=== PATIENT | female | born 1965 | race Caucasian/White ===

== ENCOUNTER 2016-07-20 00:16 | Emergency (ER) | payer OTHER ==
[2016-07-20 00:32] VITALS: RESP 20
--- NOTE | 2016-07-20 01:06 | ED ---
Upper Extremity HPI <Rusty Peter - Last Filed: 07/20/16 02:55> - General Source: patient, family Mode of arrival: ambulatory Limitations: no limitations <Anuradha Moore - Last Filed: 07/20/16 12:26> - General Chief Complaint: Extremity Injury, Upper Stated Complaint: R Wrist Injury Time Seen by Provider: 07/20/16 00:37 - History of Present Illness Initial Comments: is a 50-year-old female with chief complaint of right hand injury after she fell. Patient reports that she's had a few alcoholic drinks and was dancing. Patient reports that she tripped when she was dancing and landed on her hand hitting his outstretched. Patient reports is a visual deformity of the wrist. She denies any peripheral paresthesias. She states that her hand has some mild pain with movement. Patient denies any elbow or shoulder pain. Patient reports that she is right-handed. She does not have an orthopedic physician at this time. (Anuradha Moore) - Related Data Previous Rx's Medication Instructions Recorded HYDROcodone/APAP 10-325MG [[place] 1 tab PO Q6H PRN #20 tab 07/20/16 10-325] Allergies Allergy/AdvReac Type Severity Reaction Status Date / Time No Known Allergies Allergy Verified 07/20/16 00:29 Review of Systems ROS Other: All systems not noted in ROS Statement are negative. <RomeRusty - Last Filed: 07/20/16 02:55> ROS Other: All systems not noted in ROS Statement are negative. <Anuradha Moore - Last Filed: 07/20/16 12:26> ROS Statement: Those systems with pertinent positive or pertinent negative responses have been documented in the HPI. Past Medical History Past Medical History: Hypertension History of Any Multi-Drug Resistant Organisms: None Reported Past Surgical History: No Surgical Hx Reported Past Psychological History: Anxiety Smoking Status: Former smoker Past Alcohol Use History: None Reported, Occasional Past Drug Use History: None Reported <Anuradha Moore - Last Filed: 07/20/16 12:26> General Exam <RomeRusty - Last Filed: 07/20/16 02:55> Limitations: no limitations General appearance: alert, in no apparent distress Head exam: Present: atraumatic, normocephalic, normal inspection Eye exam: Present: normal appearance, PERRL, EOMI. Absent: scleral icterus, conjunctival injection, periorbital swelling ENT exam: Present: normal exam, mucous membranes moist Neck exam: Present: normal inspection. Absent: tenderness, meningismus, lymphadenopathy Respiratory exam: Present: normal lung sounds bilaterally. Absent: respiratory distress, wheezes, rales, rhonchi, stridor Cardiovascular Exam: Present: regular rate, normal rhythm, normal heart sounds. Absent: systolic murmur, diastolic murmur, rubs, gallop, clicks GI/Abdominal exam: Present: soft, normal bowel sounds. Absent: distended, tenderness, guarding, rebound, rigid Extremities exam: Present: normal inspection, normal capillary refill. Absent: full ROM, tenderness, pedal edema, joint swelling, calf tenderness Right Hand Wrist exam: Present: tenderness (over distal radius and ulna), swelling, deformity (silverfork deformatiy. ). Absent: normal inspection, full ROM Neuro motor exam: Present: thumb adduction intact, fingers 2-5 abduction intact. Absent: wrist extension intact (mild extensio with pain. ) Neurosensory exam: Present: 2-point discrimination, radial nerve intact, ulnar nerve intact, median nerve intact Vascular: Present: normal capillary refill Back exam: Present: normal inspection Neurological exam: Present: alert, oriented X3, CN II-XII intact Psychiatric exam: Present: normal affect, normal mood Skin exam: Present: warm, dry, intact, normal color. Absent: rash <Anuradha Moore - Last Filed: 07/20/16 12:26> - General Exam Comments Initial Comments: is a well-appearing 50-year-old female. She is on appear to be in any acute distress. (Anuradha Moore) Procedures <Rusty Peter - Last Filed: 07/20/16 02:55> - Orthopedic Fracture Reduction Fracture #1 Fracture Reduction Location: radius Analgesia: hematoma block Technique: traction/counter-traction Post Reduction X-rays Demonstrate: anatomical reduction Post-Reduction Neuro Exam: intact Post-Reduction Vascular Exam: intact Splint Applied: Yes Patient Tolerated Procedure: well, no complications - Orthopedic Splinting/Casting Injury #1 Side: right Upper Extremity Injury Location: wrist Upper Extremity Immobilizer: volar splint <Anuradha Moore - Last Filed: 07/20/16 12:26> - Procedures Initial comment: A hematoma block was performed the patient and her sterile conditions and reduction was accomplished with the assistance of the physician assistant counsel. I did review the x-ray and discuss findings with patient family. Patient will be discharged with orthopedic follow-up. There appear to be a good result for the reduction of the distal radius fracture. (Rusty Peter) Medical Decision Making <Rusty Peter - Last Filed: 07/20/16 02:55> - Radiology Data Radiology results: report reviewed <Anuradha Moore - Last Filed: 07/20/16 12:26> - Medical Decision Making PAtient is a 50 year old right handed female with distal radius fracture after dancing and falling back on an outstreched hand. PAtient has obvious silver fork deformity. Patient has comminuted distal radius fracture, and ulnar syloid process fracture. Patient given hematoma block by Dr. Peter, and fracture was manually reduced and placed in an volar splint. PAtient given pain medicaiton script and follow up with ortho. Return parameters discussed. Patient was reelvaluated and is neurovascularly intact post reduction. (Anuradha Moore) - Radiology Data Acute comminuted displaced distal right radial fracture with dorsal angulation and displacement of distal fracture fragment. displaced comminuted ulnar styloid process fracture. soft tissue swelling. No acute fracture in hand. Post reduction xray- Evience of internal post reduction and fiberglass cast application changes with improved position of fracture fragments in distal right radius and ulna. (Anuradha Moore) Disposition <Rusty Peter - Last Filed: 07/20/16 02:55> Time of Disposition: 02:54 <Anuradha Moore - Last Filed: 07/20/16 12:26> Clinical Impression: Closed fracture distal radius and ulna Disposition: HOME SELF-CARE Condition: Good Instructions: Arm Fracture in Adults (ED) Additional Instructions: Instructed to follow-up with orthopedic physician. Take pain medication as directed. Return to the EC if any alarming signs or symptoms occur. Prescriptions: HYDROcodone/APAP 10-325MG [[place] 10-325] 1 tab PO Q6H PRN #20 tab PRN Reason: Pain Referrals: Felipe Fam Jr, DO [Primary Care Provider] - 1-2 days Ladarius Salazar MD [STAFF PHYSICIAN] - 1-2 days
[2016-07-20] MEDS ORDERED: HYDROmorphone 1 MG/ML 1 ML SYRINGE IM STA (01:07)
[2016-07-20] MEDS ORDERED: ONDANSETRON 4 MG ODT STARTER PACK 2 TAB BTL PO STA (03:06)
[2016-07-20 03:13] VITALS: BP 136/78; PULSE 80; TEMP 98.2
--- NOTE | 2016-07-20 03:25 | XR ---
EXAMINATION TYPE: XR hand limited RT DATE OF EXAM: 07/20/2016 12:55 AM CLINICAL HISTORY: Patient fell back on the outstretched right and and wrist TECHNIQUE: Frontal, lateral and oblique images of the right hand are obtained. COMPARISON: Right wrist 07/20/2016 FINDINGS: There is evidence of acute comminuted displaced fracture of distal right radius with dorsal angulatio n and displacement of distal fracture fragment. There is also evidence of displaced acute comminuted fracture of right ulnar styloid process. Soft tissue swelling is noted around right wrist and right hand. Right hand showed no definite acute fracture. Mild degenerative changes are suggested in the right fi rst metacarpophalangeal joint. IMPRESSION: 1. Acute comminuted displaced distal right radial fracture with dorsal angulation and displacement of distal fracture fragment. 2. Displaced comminuted ulnar styloid process fracture. 3. Soft tissue swelling. 4. No acute fracture is noted in the right hand.
--- NOTE | 2016-07-20 03:27 | XR ---
EXAMINATION TYPE: XR wrist complete RT DATE OF EXAM: 07/20/2016 12:55 AM CLINICAL HISTORY: History of fall TECHNIQUE: Frontal, lateral and oblique images of the right wrist are obtained. COMPARISON: Right hand 07/20/2016 FINDINGS: There is acute comminuted displaced fracture of distal right radius with dorsal angulation and displa cement of distal fracture fragments. This does not appear as intra-articular fracture. There is slightly displaced fracture of right ulnar styloid process. Soft tissue swelling is noted around the right hand and right wrist. IMPRESSION: Acute comminuted displaced fracture of distal right radius and displaced fracture of right ulnar styl oid process.
--- NOTE | 2016-07-20 04:29 | XR ---
EXAMINATION TYPE: XR wrist limited RT DATE OF EXAM: 07/20/2016 2:29 AM CLINICAL HISTORY: Post reduction TECHNIQUE: Frontal and lateral radiographs of right wrist were obtained. COMPARISON: 07/20/2016 FINDINGS: There is evidence of post reduction and fiberglass cast application with improved position of fractur e fragments of distal right radius. There is slightly displaced fracture fragment of right ulna stylo id process with improved position since previous study. Soft tissue swelling. IMPRESSION: Evidence of interval post reduction and fiberglass cast application changes with improved position of fracture fragments of distal right radius and ulna.
== END 2016-07-20 03:13 | disposition home or self-care (01) ==
LOC: EC 00:16
DX: S52.591A Other fractures of lower end of right radius, initial encounter for closed fracture (principal); S52.611A Displaced fracture of right ulna styloid process, initial encounter for closed fracture; W01.0XXA Fall on same level from slipping, tripping and stumbling without subsequent striking against object, initial encounter; Y93.41 Activity, dancing; Z87.891 Personal history of nicotine dependence
CPT/HCPCS: 73100; 73110; 73120; 99283; 25605; 96372; J1170

== ENCOUNTER → 2016-07-22 | Outpatient (CLI) | payer OTHER ==
[2016-07-22 15:17] LABS: Potassium 3.7 mmol/L (3.5-5.1)
== END | disposition home or self-care (01) ==
LOC: LAB 14:07
PROVIDERS: ATTEND Orthopaedic Surgery
DX: Z01.818 Encounter for other preprocedural examination (principal)
CPT/HCPCS: 80051

== ENCOUNTER 2016-08-07 06:57 | Observation (INO) | payer OTHER ==
[2016-08-06 10:14] VITALS: BMI 30.1
[~2016-08-07 06:57] MED LIST: DEXAMETHASONE SOD PHOSPHATE 10 MG/ML 1 ML VIAL IV ONE; LACTATED RINGERS 1,000 ML IV SCH; LIDOCAINE 1% 20 ML VIAL (10MG/ML) FOR IV START INTRADERMA PRN; MIDAZOLAM 2 MG/2 ML VIAL IV PRN; ONDANSETRON 4 MG/2 ML VIAL IVP ONE; SCOPOLAMINE 1.5MG/72HR PATCH TRANSDERM ONE; ceFAZolin 2 GM in SODIUM CHLORIDE 0.9% 100 ML IVPB ONE
[2016-08-07] MEDS ORDERED: LIDOCAINE 1% 20 ML VIAL (10MG/ML) FOR IV START INTRADERMA ONE (07:13)
[2016-08-07] MEDS ORDERED: ePHEDrine 50 MG/ML 1 ML AMP ONE (08:39)
[2016-08-07] MEDS ORDERED: SUCCINYLCHOLINE CHLORIDE 100 MG/5 ML SYR IV ONE (08:39)
[2016-08-07] MEDS ORDERED: KETOROLAC 30 MG/ML 1 ML VIAL ONE (08:39)
[2016-08-07] MEDS ORDERED: LIDOCAINE 1% INJ 10MG/ML (20 ML MDV) ONE (08:39)
[2016-08-07] MEDS ORDERED: PROPOFOL 10 MG/ML 20 ML VIAL IV ONE (08:39)
[2016-08-07] MEDS ORDERED: HYDROmorphone (PF) 1 MG/ML ONE (08:39)
[2016-08-07] MEDS ORDERED: MIDAZOLAM 2 MG/2 ML VIAL ONE (08:39)
[2016-08-07] MEDS ORDERED: fentaNYL (PF) 50 MCG/ML 2 ML AMP ONE (08:39)
[2016-08-07] MEDS ORDERED: ceFAZolin 1,000 MG in SODIUM CHLORIDE 0.9% 1,000 ML IRRIGATION ONE ×6 (09:08)
[2016-08-07] MEDS ORDERED: LACTATED RINGERS 1,000 ML IV ONE (10:01)
[2016-08-07] MEDS ORDERED: TEMAZEPAM 15 MG CAP PO PRN (10:20)
[2016-08-07] MEDS ORDERED: ONDANSETRON 4 MG/2 ML VIAL IVP PRN (10:20)
[2016-08-07] MEDS ORDERED: hydrOXYzine PAMOATE 25 MG CAP PO PRN (10:20)
[2016-08-07] MEDS ORDERED: SENNOSIDES-DOCUSATE SODIUM 1 EACH TAB PO PRN (10:20)
[2016-08-07] MEDS ORDERED: HYDROmorphone 1 MG/ML 1 ML SYRINGE IVP PRN ×3 (10:20)
[2016-08-07] MEDS ORDERED: HYDROcodone/APAP 5-325MG 1 EACH TAB PO PRN ×2 (10:20)
--- NOTE | 2016-08-07 10:20 | FL ---
EXAMINATION TYPE: FL guidance operating room, XR wrist limited RT DATE OF EXAM: 08/07/2016 10:07 AM CLINICAL HISTORY: Distal radial and ulnar fracture. TECHNIQUE: Fluoroscopy. Intraoperative limited views right wrist. COMPARISON: Right wrist x-ray July 20, 2016.. FINDINGS: Fluoroscopic guidance was provided during open reduction internal fixation procedure perfo rmed by Dr. Smalls. A total of 23 seconds of fluoroscopic time was utilized during the procedure and 5 spot intraoperative images are acquired. Intraoperative images acquired show placement of volar fixating plate through comminuted intra-articu lar fracture distal radial meta-epiphysis. Satisfactory alignment is seen on intraoperative images pr ovided after hardware placement. IMPRESSION: As Above.
[2016-08-07] MEDS ORDERED: ALPRAZolam 0.25 MG TAB PO PRN (10:23)
[2016-08-07] MEDS ORDERED: HYDROcodone/APAP 10-325MG 1 EACH TAB PO PRN (10:24)
[2016-08-07] MEDS: HYDROmorphone 1 MG/ML 1 ML SYRINGE IVP PRN ×2 (10:49→10:55)
[2016-08-07] MEDS: HYDROcodone/APAP 10-325MG 1 EACH TAB PO PRN ×2 (11:16→21:01)
[2016-08-07] MEDS: ceFAZolin 2 GM in SODIUM CHLORIDE 0.9% 100 ML IVPB SCH ×2 (16:13→23:10)
[2016-08-07] MEDS: LACTATED RINGERS 1,000 ML IV SCH ×2 (16:43→20:56)
--- NOTE | 2016-08-07 20:01 | OP ---
DATE OF SERVICE: 08/07/2016 SURGEON: ERIN FERNANDEZ DO TRACTOR MECHANIC APPRENTICE: Suly Malagon NP PREOPERATIVE DIAGNOSIS: Displaced angulated fracture of the distal right radius. POSTOPERATIVE DIAGNOSIS: Displaced angulated fracture of the distal right radius. OPERATION: Open reduction and internal fixation of distal radius fracture. ANESTHESIA: ESTIMATED BLOOD LOSS: SPECIMENS REMOVED: COMPLICATIONS: OPERATIVE FINDINGS: DESCRIPTION OF PROCEDURE: The patient was taken to the operative suite and placed in supine position. General inhalation anesthesia was performed by the Department of Anesthesia. The right hand was secured and sterile drapes applied in the usual manner. Pneumatic tourniquet inflated. A longitudinal incision was developed along the FCR. Blunt dissection through the subcutaneous tissue was performed. Retraction of the median nerve and soft tissue was carried out. The pronator muscle noted. Split longitudinally and elevated of the distal radius. Gentle reduction is performed. Following reduction of the fracture, a small right volar plate was selected and secured with peg pin in position and alignment. Following the adjustment of the fracture peg locking screws were inserted into the plate and appropriate position was noted radiographically. The proximal plate was secure and joint was improved the anatomic position. The area was irrigated copiously. The remaining proximal screw was tightened for stability. X-rays were obtained documenting alignment and position of the screws and plate and fracture. The wound was irrigated with antibiotic solution. Subcutaneous tissue approximated with 3-0 Vicryl suture. Skin approximated with 3-0 Quill suture in a subcuticular fashion. The wound was sealed with Dermabond. Betadine, Adaptic and sterile pressure dressing with volar OCL splint applied and the pneumatic tourniquet was deflated. The patient was transferred to the recovery room in satisfactory postoperative condition. GROSS PATHOLOGY: There was evidence of a two week old angulated displaced unstable fracture of the distal right radius with closed reduction and treatment previously with progressive instability. PATRICIO
[2016-08-08] MEDS: HYDROcodone/APAP 10-325MG 1 EACH TAB PO PRN (02:19)
[2016-08-08] MEDS: LACTATED RINGERS 1,000 ML IV SCH (03:18)
[2016-08-08 07:47] VITALS: BP 94/63; PULSE 64; RESP 17; TEMP 98.1
[2016-08-08] MEDS ORDERED: BISOPROLOL-HCTZ 2.5-6.25 MG 1 EACH TAB PO SCH (09:00)
--- NOTE | 2016-08-08 09:28 | P.DS ---
Providers Date of admission: 08/07/16 19:29 Expected date of discharge: 08/08/16 Attending physician: Macario Smalls Primary care physician: Felipe Fam - Discharge Diagnosis(es) (1) Fracture of right distal radius Current Visit: Yes Status: Acute (2) Status post open reduction with internal fixation of fracture Current Visit: Yes Status: Acute Hospital Course: This is a 50-year-old female with a displaced right distal radius fracture. The patient presented to the orthopedic office for evaluation. After discussion and consideration patient elects to proceed with a ORIF of the right distal radius. The patient is seen preoperatively by her primary care physician and cleared for surgery. Patient is admitted to observation at [facility] on 08/07/2016 for an ORIF of the right distal radius with volar plate. The procedures performed without complication or sequelae. The patient is doing well postoperatively. Labs and vital signs are stable on day of discharge. On day of discharge patient's right wrist splint and dressing are dry and intact. There is minimal soft tissue swelling to the right upper extremity. Patient has elbow motion without difficulty or pain. She does have some stiffness to the fingers. Neurovascular status to the right upper extremity is intact. Patient is discharged to home in good condition. Patient Condition at Discharge: Stable Plan - Discharge Summary New Discharge Prescriptions: Sennosides-Docusate Sodium [Senokot-S] 2 tab PO DAILY #30 tablet Discharge Medication List HYDROcodone/APAP 10-325MG [[place] 10-325] 1 tab PO Q6H PRN #20 tab 07/20/16 [Rx] Multivitamins, Thera [Multivitamin] 1 tab PO DAILY 08/06/16 [History] Turmeric Root Extract [Turmeric] 500 mg PO DAILY 08/06/16 [History] ALPRAZolam [Xanax] 0.25 mg PO DAILY PRN #0 tab 08/08/16 [Rx] Bisoprolol-Hctz 2.5-6.25 mg [Ziac 2.5-6.25 MG] 1 each PO DAILY tab 08/08/16 [Rx ] HYDROcodone/APAP 10-325MG [[place] 10-325] 1 each PO Q4H PRN #0 tab 08/08/16 [Rx] HYDROcodone/APAP 10-325MG [[place] 10-325] 2 each PO Q6H PRN #0 tab 08/08/16 [Rx] Sennosides-Docusate Sodium [Senokot-S] 2 tab PO DAILY #30 tablet 08/08/16 [Rx] Follow up Appointment(s)/Referral(s): Macario Smalls DO [Doctor of Osteopathic Medicine] - 10 Days Activity/Diet/Wound Care/Special Instructions: Keep splint and dressing in place until follow-up Keep splint and dressing clean and dry Elevated right arm above heart Ice right wrist Follow up with Dr. Smalls in 10 days Call [facility] with any questions or concerns, . Discharge Disposition: HOME SELF-CARE
== END 2016-08-08 13:36 | disposition home or self-care (01) ==
LOC: OR 06:57 → 3SUR 10:17 → OR 19:29 → 3SUR 19:29
PROVIDERS: ADMIT Orthopaedic Surgery; ATTEND Orthopaedic Surgery
DX: S52.571A Other intraarticular fracture of lower end of right radius, initial encounter for closed fracture (principal); I10 Essential (primary) hypertension; Z87.891 Personal history of nicotine dependence; Z79.899 Other long term (current) drug therapy; W18.39XA Other fall on same level, initial encounter; Y93.41 Activity, dancing; Y92.89 Other specified places as the place of occurrence of the external cause
CPT/HCPCS: 73100; 25400; G0378 ×2; C1713; J2250; J1100; J0690 ×2; J2405; J2001; J3010; J1885; J1170; J0330; J2704

== ENCOUNTER → 2017-08-20 | Outpatient (CLI) | payer OTHER ==
--- NOTE | 2017-08-24 10:36 | MM ---
Reason for exam: screening (asymptomatic). Last mammogram was performed 9 years and 4 months ago. History: Taking hormonal contraceptives for 26 years beginning at age 16. Physical Findings: A clinical breast exam by your physician is recommended on an annual basis and results should be correlated with mammographic findings. MG Screening Mammo w CAD Bilateral CC and MLO view(s) were taken. Prior study comparison: April 11, 2015, mammogram, performed at [facility]. April 05, 2015, mammogram, performed at [facility]. The breast tissue is heterogeneously dense. This may lower the sensitivity of mammography. No suspicious abnormality. No significant changes when compared with prior studies. ASSESSMENT: Negative, BI-RAD 1 RECOMMENDATION: Routine screening mammogram of both breasts in 1 year.
== END | disposition home or self-care (01) ==
LOC: RADMAMWWP 09:53
PROVIDERS: ATTEND Family Medicine
DX: Z12.31 Encounter for screening mammogram for malignant neoplasm of breast (principal)
CPT/HCPCS: 77067

== ENCOUNTER → 2017-12-03 | Outpatient (CLI) | payer OTHER ==
--- NOTE | 2017-12-03 11:03 | USB ---
Reason for exam: clinical finding. History: Taking hormonal contraceptives for 26 years beginning at age 16. Physical Findings: Nurse Summary: 1cm red superficial area (nurse dw). US Breast LT Left complete breast ultrasound includes all four quadrants, the retroareolar region and axilla. Finding demonstrates a 7 x 5 x 7mm oval, solid, hypoechoic lesion at 11 o'clock palpable. Sinus tract to the skin surface indicative of an epidermal inclusion cyst. These results were verbally communicated with the patient and result sheet given to the patient on 12/03/17. ASSESSMENT: Benign, BI-RAD 2 RECOMMENDATION: Surgical consultation of the left breast. (for potential excision) Called with mammographic findings and has scheduled an appointment for the patient for 12/17/17 at 3:[address] Cuevas. PRELIMINARY REPORT CALLED AND FAXED TO DR. CUEVAS ON 12/03/17.
== END | disposition home or self-care (01) ==
LOC: RADUSWWP 09:53
PROVIDERS: ATTEND Family Medicine
DX: N63.20 Unspecified lump in the left breast, unspecified quadrant (principal)

== ENCOUNTER → 2017-12-17 | Outpatient (CLI) | payer OTHER ==
[2017-12-17 15:27] VITALS: BP 128/81; PULSE 65; TEMP 97.8; BMI 29.0
--- NOTE | 2017-12-17 15:54 | P.GSHP ---
History of Present Illness H&P Date: 12/17/17 Patient is a 52 year old white female who noted a left breast nodule proximally 2 months ago. The area seemed to increase in size. A recent ultrasound on revealed a 7 x 7 mm oval solid hypoechoic lesion at 11:00. There is a sinus tract to the skin surface indicative of an epidermal inclusion cyst. The patient had bilateral mammogram performed on 08/20/2017 which was felt to be negative. The patient feels no other lumps in her breasts. The patient has no nipple discharge or changes. The patient has no redness in her breast at this time. The patient has no pain in her breasts. Family history: Negative for cancer menarche: 11 : 1, at 15, did not breast feed menopause: 48 BCP: 30 years hormones: none past surgical history: 1. right wrist plate in her wrist past medical history: none ROS: HEENT: Tinnitus Lungs: He did have Heart: Negative GI: Negative : As ALLERGIES: seasonal Musculoskeletal: Negative - Constitutional Comment: night sweats Constitutional: Reports as per HPI - EENT Eyes: bilateral as per HPI Ears: bilateral: tinnitus, deny: decreased hearing Ears, nose, mouth and throat: Denies headache, Denies sore throat - Breasts Breasts: bilateral: as per HPI - Cardiovascular Cardiovascular: Denies chest pain, Denies shortness of breath - Respiratory Respiratory: Denies cough, Denies 7 - Gastrointestinal Comment: colonoscopy: diverticulitis, about 3 years ago Gastrointestinal: Reports as per HPI, Denies abdominal pain, Denies diarrhea, Denies nausea, Denies vomiting - Genitourinary (Female) Genitourinary: Denies dysuria, Denies hematuria - Musculoskeletal Musculoskeletal: Reports as per HPI - Integumentary Integumentary: Reports as per HPI - Neurological Neurological: Denies numbness, Denies weakness - Psychiatric Psychiatric: Reports anxiety, Denies depression - Endocrine Endocrine: Denies fatigue, Denies weight change - Hematologic/Lymphatic Comment: none - Allergic/Immunologic Allergic/Immunologic: Reports as per HPI Past Medical History Past Medical History: Hypertension Additional Past Medical History / Comment(s): Fx. R wrist History of Any Multi-Drug Resistant Organisms: None Reported Past Surgical History: No Surgical Hx Reported Additional Past Surgical History / Comment(s): Colonoscopy, wisdom teeth, R wrist surgery. Past Anesthesia/Blood Transfusion Reactions: No Reported Reaction Past Psychological History: Anxiety Smoking Status: Former smoker Past Alcohol Use History: Occasional Past Drug Use History: None Reported - Past Family History Mother Family Medical History: No Reported History Medications and Allergies Home Medications Medication Instructions Recorded Confirmed Type Multivitamins, Thera [Multivitamin 1 tab PO DAILY 08/06/16 12/17/17 History (formulary)] ALPRAZolam [Xanax] 0.25 mg PO DAILY PRN #0 tab 08/08/16 12/17/17 Rx Bisoprolol-Hctz 2.5-6.25 mg [Ziac 1 each PO QAM 12/17/17 12/17/17 History 2.5-6.25 MG] Escitalopram Oxalate [Lexapro] 10 mg PO DAILY 12/17/17 12/17/17 History Omeprazole [PriLOSEC] 20 mg PO AC-BRKFST 12/17/17 12/17/17 History Phentermine HCl [Adipex-P] 37.5 mg PO QAM 12/17/17 12/17/17 History Zolpidem Tartrate [Ambien] 1 tab PO DAILY PRN 12/17/17 12/17/17 History Allergies Allergy/AdvReac Type Severity Reaction Status Date / Time No Known Allergies Allergy Verified 08/07/16 07:08 Surgical - Exam Vital Signs Temp Pulse BP Pulse Ox 97.8 F 65 128/81 99 12/17/17 15:25 12/17/17 15:25 12/17/17 15:25 12/17/17 15:25 - General well developed, well nourished, no distress - Eyes normal ocular movement, no icteric - ENT no hearing loss, no congestion - Neck no masses, trachea midline - Respiratory normal respiratory effort, clear to auscultation - Cardiovascular Rhythm: regular Heart Sounds: normal: S1, S2 - Abdomen Abdomen: soft, non tender, no guarding, no rigid, no rebound - Integumentary Examination of the breasts: Right breast: Multiple positional exam no dominant masses or nodules of concern Right axilla: No adenopathy of concern Left breast: Approximately one by one 100 half centimeter subcutaneous nodule in the medial portion of the left breast appears to be consistent with a sebaceous cyst No dominant masses or nodules of concern otherwise in the left breast a multi- positional exam Left axilla: No adenopathy of concern - Neurologic no disoriented, no combative - Musculoskeletal normal gait - Psychiatric oriented to time, oriented to person, oriented to place, speech is normal, memory intact Assessment and Plan Assessment: Impression/plan: 1. Cystic lesion left medial breast probable sebaceous cyst Plan: 1. Excision of cystic lesion left breast in the operating room Risk and benefits discussed with the patient and her and we are going to schedule for surgery Cc: Dr. Fam
== END ==
LOC: WWCWWP 14:52
PROVIDERS: ATTEND Surgery
DX: N60.02 Solitary cyst of left breast (principal); Z53.9 Procedure and treatment not carried out, unspecified reason

== ENCOUNTER 2017-12-29 07:12 | Day surgery (SDC) | payer OTHER ==
[2017-12-24 12:45] VITALS: BMI 28.8
[~2017-12-29 07:12] MED LIST changes: +Pre Op ABX Message 1 EACH MISC MISCELLANE ONE; -SCOPOLAMINE 1.5MG/72HR PATCH TRANSDERM ONE; -ceFAZolin 2 GM in SODIUM CHLORIDE 0.9% 100 ML IVPB ONE; +fentaNYL (PF) 50 MCG/ML 2 ML AMP IV PRN
[2017-12-29 07:53] VITALS: RESP 18; TEMP 98.2
[2017-12-29] MEDS ORDERED: HEPARIN SODIUM,PORCINE 5,000 UNIT/ML 1 ML VIAL SQ ONE ×2 (08:20→08:43)
[2017-12-29 08:27] LABS: Potassium 3.9 mmol/L (3.5-5.1)
[2017-12-29] MEDS ORDERED: PROPOFOL 10 MG/ML 20 ML VIAL IV ONE ×2 (08:36)
[2017-12-29] MEDS ORDERED: MIDAZOLAM 2 MG/2 ML VIAL ONE ×2 (08:36)
[2017-12-29] MEDS ORDERED: fentaNYL (PF) 50 MCG/ML 2 ML AMP ONE ×2 (08:36)
[2017-12-29] MEDS ORDERED: LIDOCAINE 1% INJ 10MG/ML (20 ML MDV) ONE ×2 (08:36)
[2017-12-29] MEDS ORDERED: LIDOCAINE 1% (PF) 10MG/ML VIAL SQ ONE ×2 (08:50)
--- NOTE | 2017-12-29 09:08 | P.OP ---
Date of Procedure: 12/29/17 Preoperative Diagnosis: Subcutaneous cystic lesion left breast Postoperative Diagnosis: Same Procedure(s) Performed: Excision subcutaneous cystic lesion left breast Anesthesia: MAC Surgeon: Cindy Cuevas Estimated Blood Loss (ml): 3 IV fluids (ml): 300 Pathology: other (subcutaneous lesion) Condition: stable Disposition: PACU Indications for Procedure: Subcutaneous nodule, increased in size, probable sebaceous cyst Operative Findings: Subcutaneous nodule left medial breast, approximately 8 mm in size Description of Procedure: The patient was taken to the operating room and following sedation the left breast was prepped and draped in a sterile fashion. Approximately 10 mL of 1% lidocaine were used to anesthetize the area of concern. Wide excision of the area of concern was performed. What appeared to be sebum was identified extruding from a cystic lesion in the subcutaneous area. The lesion was approximately 8 mm in size. The area was excised. Following excision the wound was well irrigated. The deep tissues were closed with 3-0 Vicryl suture. The skin was closed with 4-0 Monocryl. Steri-Strips were applied. The patient tolerated the procedure in stable condition. All instrument and sponge counts were correct at the end of the case.
--- NOTE | 2017-12-29 09:09 | P.DS ---
Providers Attending physician: Cindy Cuevas Primary care physician: Aayush Bourne Plan - Discharge Summary New Discharge Prescriptions: No Action Multivitamins, Thera [Multivitamin (formulary)] 1 tab PO DAILY Omeprazole [PriLOSEC] 20 mg PO AC-BRKFST Escitalopram Oxalate [Lexapro] 10 mg PO DAILY Phentermine HCl [Adipex-P] 37.5 mg PO QAM Bisoprolol-Hctz 2.5-6.25 mg [Ziac 2.5-6.25 MG] 1 each PO QAM Zolpidem Tartrate [Ambien] 1 tab PO DAILY PRN PRN Reason: Anxiety Discharge Medication List Multivitamins, Thera [Multivitamin (formulary)] 1 tab PO DAILY 08/06/16 [History ] Bisoprolol-Hctz 2.5-6.25 mg [Ziac 2.5-6.25 MG] 1 each PO QAM 12/17/17 [History] Escitalopram Oxalate [Lexapro] 10 mg PO DAILY 12/17/17 [History] Omeprazole [PriLOSEC] 20 mg PO AC-BRKFST 12/17/17 [History] Phentermine HCl [Adipex-P] 37.5 mg PO QAM 12/17/17 [History] Zolpidem Tartrate [Ambien] 1 tab PO DAILY PRN 12/17/17 [History] Follow up Appointment(s)/Referral(s): Cindy Cuevas MD [STAFF PHYSICIAN] - 1 Week Activity/Diet/Wound Care/Special Instructions: do not drive today Discharge Disposition: HOME SELF-CARE
[2017-12-29 10:11] VITALS: BP 115/77; PULSE 57
== END 2017-12-29 10:46 | disposition home or self-care (01) ==
LOC: OR 07:12
PROVIDERS: ATTEND Surgery
DX: N60.02 Solitary cyst of left breast (principal); I10 Essential (primary) hypertension; F41.9 Anxiety disorder, unspecified; Z87.891 Personal history of nicotine dependence; H93.13 Tinnitus, bilateral; K21.9 Gastro-esophageal reflux disease without esophagitis; Z79.899 Other long term (current) drug therapy
CPT/HCPCS: 88304; 80051; 19120; J2250; J1644; J1100; J2405; J2001 ×2; J3010; J2704

== ENCOUNTER → 2018-01-07 | Outpatient (CLI) | payer OTHER ==
[2018-01-07 09:12] VITALS: BP 117/79; PULSE 64; TEMP 98.2; BMI 28.7
--- NOTE | 2018-01-07 09:19 | P.PN ---
Subjective Progress Note Date: 01/07/18 Patient is status post excision of an nodular/cystic area of the left breast. Pathology revealed benign skin with ruptured follicular cyst. The patient has no complaints at this time. She is doing well. Objective - Vital Signs Vital signs: Vital Signs Temp 98.2 F 01/07/18 09:09 Pulse 64 01/07/18 09:09 Resp BP 117/79 01/07/18 09:09 Pulse Ox 97 01/07/18 09:09 Intake & Output 01/06/18 01/07/18 01/07/18 18:59 06:59 18:59 Weight 73.482 kg - Constitutional General appearance: Present: average body habitus - Integumentary Integumentary Comment(s): Incision clean and dry Assessment and Plan Assessment: Impression/plan: 1. Patient status post excision of cystic lesion left breast pathology benign Plan: 1. Repeat bilateral mammogram regularly scheduled interval 2. Follow-up physician exam at that time Cc: Dr. Fam
== END | disposition home or self-care (01) ==
LOC: WWCWWP 08:56
PROVIDERS: ATTEND Surgery
DX: Z53.9 Procedure and treatment not carried out, unspecified reason (principal)

== ENCOUNTER → 2018-08-23 | Outpatient (CLI) | payer OTHER ==
--- NOTE | 2018-08-23 10:55 | MM ---
Reason for exam: additional evaluation requested from prior study. Last mammogram was performed 1 year ago. History: Patient is postmenopausal. Benign excisional biopsy of the left breast, December 2017. Taking hormonal contraceptives for 26 years beginning at age 16. Physical Findings: Nurse did not find any significant physical abnormalities on exam. MG 3D Diag Mammo W/Cad ANGEL Bilateral CC and MLO view(s) were taken. Prior study comparison: August 20, 2017, bilateral MG screening mammo w CAD. April 11, 2015, mammogram, performed at [facility]. The breast tissue is heterogeneously dense. This may lower the sensitivity of mammography. There is no discrete abnormality. These results were verbally communicated with the patient and result sheet given to the patient on 08/23/18. ASSESSMENT: Negative, BI-RAD 1 RECOMMENDATION: Routine screening mammogram of both breasts in 1 year.
== END | disposition home or self-care (01) ==
LOC: RADMAMWWP 09:33
PROVIDERS: ATTEND Family Medicine
DX: R92.8 Other abnormal and inconclusive findings on diagnostic imaging of breast (principal)
CPT/HCPCS: 77062; 77066

== ENCOUNTER → 2019-06-10 | Outpatient (CLI) | payer OTHER ==
--- NOTE | 2019-06-10 22:33 | XR ---
EXAMINATION TYPE: XR ankle complete LT DATE OF EXAM: 06/10/2019 CLINICAL HISTORY: Pain and swelling for 2 weeks. TECHNIQUE: Frontal, lateral and oblique images of the left ankle are obtained. COMPARISON: None. FINDINGS: There is no acute fracture/dislocation evident in the left ankle. The ankle mortise appea rs within normal limits. There is moderate size inferior calcaneal spur. There is mild diffuse subcut aneous edema with mild soft tissue swelling over the lateral malleolus. IMPRESSION: As above .
== END | disposition home or self-care (01) ==
LOC: RADXRMAIN 16:09
PROVIDERS: ATTEND Family Medicine
DX: M79.89 Other specified soft tissue disorders (principal)

== ENCOUNTER → 2020-11-23 | Outpatient (CLI) | payer OTHER ==
--- NOTE | 2020-11-28 13:31 | MM ---
Reason for exam: screening (asymptomatic). Last mammogram was performed 2 years and 3 months ago. History: Patient is postmenopausal. Benign excisional biopsy of the left breast, December 2017. Took hormonal contraceptives for 26 years beginning at age 16. Physical Findings: A clinical breast exam by your physician is recommended on an annual basis and results should be correlated with mammographic findings. MG 3D Screening Mammo W/Cad Bilateral CC and MLO view(s) were taken. Prior study comparison: August 23, 2018, bilateral MG 3d diag mammo w/cad ANGEL. August 20, 2017, bilateral MG screening mammo w CAD. The breast tissue is heterogeneously dense. This may lower the sensitivity of mammography. There is no discrete abnormality. ASSESSMENT: Negative, BI-RAD 1 RECOMMENDATION: Routine screening mammogram of both breasts in 1 year.
== END | disposition home or self-care (01) ==
LOC: RADMAMWWP 11:19
PROVIDERS: ATTEND Family Medicine
DX: Z12.31 Encounter for screening mammogram for malignant neoplasm of breast (principal); Z78.0 Asymptomatic menopausal state
CPT/HCPCS: 77063; 77067

== ENCOUNTER → 2021-03-19 | Outpatient (CLI) | payer OTHER ==
[2021-03-19 13:52] LABS: Chol/HDL Ratio 4.21 Ratio; HDL Cholesterol 62.5 mg/dL (40.00-60.00); LDL Cholesterol,Calculated 160.3 mg/dL (0.0-131.0); VLDL Calculation 40.2 mg/dL (5.00-40.00)
== END | disposition home or self-care (01) ==
LOC: LABWHC1 08:18
DX: E78.00 Pure hypercholesterolemia, unspecified (principal)
CPT/HCPCS: 36415; 80061

== ENCOUNTER → 2021-06-21 | Outpatient (CLI) | payer OTHER ==
[2021-06-21 15:22] LABS: Chol/HDL Ratio 3.37 Ratio; LDL Cholesterol,Calculated 105.1 mg/dL (0.0-131.0)
[2021-06-21 19:50] LABS: Immunoglobulin E 13.3 IU/mL (0.00-114.00)
[2021-06-25 07:21] LABS: Alt. alternata IgE Class CLASS 0; Alternaria alternata IgE <0.10 kU/L (<0.10); Asperg. fumagatus IgE <0.10 kU/L (<0.10); Asperg. fumagatus IgE Class CLASS 0; Bermuda Grass IgE <0.10 kU/L (<0.10); Birch(Com.Silvr) IgE <0.10 kU/L (<0.10); Birch(Com.Silvr) IgE Class CLASS 0; Cat Epith & Dander IgE <0.10 kU/L (<0.10); Cat Epith & Dander IgE Class CLASS 0; Clad herbarum IgE <0.10 kU/L (<0.10); Clad herbarum IgE Class CLASS 0; Cockroach IgE <0.10 kU/L (<0.10); Cottonwood IgE <0.10 kU/L (<0.10); Dermato. Pteronyssinus Class CLASS 0; Dermato. Pteronyssinus IgE <0.10 kU/L (<0.10); Dermato. farinae IgE <0.10 kU/L (<0.10); Dermato. farinae IgE Class CLASS 0; Dog Dander IgE <0.10 kU/L (<0.10); Elm IgE <0.10 kU/L (<0.10); IgE (Allergen) 13.4 IU/mL (<114.0); Maple (Box Elder) IgE <0.10 kU/L (<0.10); Maple (Box Elder) IgE Class CLASS 0; Mountain Cedar IgE <0.10 kU/L (<0.10); Mountain Cedar IgE Class CLASS 0; Mouse Urine IgE Class CLASS 0; Mouse Urine Proteins,IgE <0.10 kU/L (<0.10); Nettle IgE <0.10 kU/L (<0.10); Nettle IgE Class CLASS 0; Oak IgE <0.10 kU/L (<0.10); Penicillium chrysogenum IgE <0.10 kU/L (<0.10); Penicillium chrysogenum IgE Cl CLASS 0; Rough Marshelder IgE <0.10 kU/L (<0.10); Rough Marshelder IgE Class CLASS 0; Timothy Grass IgE <0.10 kU/L (<0.10); Timothy Grass IgE Class CLASS 0; White Ash IgE Class CLASS 0
== END | disposition home or self-care (01) ==
LOC: LABWHC1 07:14
PROVIDERS: ATTEND Nurse Practitioner Family
DX: E78.00 Pure hypercholesterolemia, unspecified (principal); Z87.19 Personal history of other diseases of the digestive system; Z87.09 Personal history of other diseases of the respiratory system
CPT/HCPCS: 36415; 80061; 82785; 86003

== ENCOUNTER → 2022-10-14 | Outpatient (CLI) | payer OTHER ==
[2022-10-15 02:46] LABS: T4, Free (Free Thyroxine) 1.14 ng/dL (0.800-1.800)
== END | disposition home or self-care (01) ==
LOC: LABWHC1 15:20
PROVIDERS: ATTEND Nurse Practitioner Women's Health
DX: R94.6 Abnormal results of thyroid function studies (principal)
CPT/HCPCS: 36415; 84439; 84443

== ENCOUNTER → 2022-11-27 | Outpatient (CLI) | payer OTHER ==
[2022-11-27 11:56] LABS: ALT 34 U/L (8-44); AST 23 U/L (13-35); Albumin 4.7 d/dL (3.8-4.9); Albumin/Globulin Ratio 1.96 Ratio (1.60-3.17); Alkaline Phosphatase 75 U/L (41-126); Calcium 9.5 mg/dL (8.7-10.3); Carbon Dioxide 26.5 mmol/L (21.6-31.8); Chloride 102 mmol/L (96-109); Globulin 2.4 d/dL (1.6-3.3); Glucose 94 mg/dL (70-110); LDL Cholesterol,Calculated 151.6 mg/dL (0.0-131.0); Potassium 4.2 mmol/L (3.5-5.5); Sodium 141 mmol/L (135-145); T4, Free (Free Thyroxine) 1.14 ng/dL (0.80-1.80); Total Bilirubin 0.3 mg/dL (0.3-1.2); Total Protein 7.1 d/dL (6.2-8.2)
== END | disposition home or self-care (01) ==
LOC: LABWHC1 07:04
PROVIDERS: ATTEND Nurse Practitioner Women's Health
DX: Z00.00 Encounter for general adult medical examination without abnormal findings (principal); I10 Essential (primary) hypertension; E78.00 Pure hypercholesterolemia, unspecified; E55.9 Vitamin D deficiency, unspecified; R94.5 Abnormal results of liver function studies
CPT/HCPCS: 36415; 80053; 80061; 82306; 84439; 84443

== ENCOUNTER → 2023-02-09 | Outpatient (CLI) | payer OTHER ==
--- NOTE | 2023-02-09 13:01 | BD ---
EXAMINATION TYPE: Axial Bone Density DATE OF EXAM: 02/09/2023 CLINICAL HISTORY: 57 years old Female. ICD-10 CODE: Z78.0 ASYMPTOMATIC MENOPAUSAL STATE Height: 63 Weight: 180.5 FRAX RISK QUESTIONS: Alcohol (3 or more units per day): no Family History (Parent hip fracture): no Glucocorticoids (More than 3mos): no (Ex: prednisone, prednisolone, methylprednisolone, dexamethasone, and hydrocortisone). History of Fracture in Adulthood: yes Secondary Osteoporosis: 1. Type 1 Diabetes: no 2. Hyperthyroidism: no 3. Menopause before 45: no 4. Malnutrition: no 5. Chronic liver disease: no Rheumatoid Arthritis: no Current Tobacco Use: no RISK FACTORS HISTORY OF: History of Wrist Fracture: right wrist When: 2017 Surgery to Spine/Hip(right/left)/Wrist (right/left): no Family History of Osteoporosis: no Active: yes Diet low in dairy products/other sources of calcium: yes Postmenopausal woman: yes Lost more than 2 inches in height since high school: no MEDICATIONS: Thyroid Medications: levothyroxine How Lon month Additional History: EXAM MEASUREMENTS: Bone mineral densitometry was performed using the [place] [facility]. Bone mineral density as measured about the Lumbar spine is: ----- L1-L4(G/cm2): 0.927 T Score Values are as follows: ----- L1: -1.7 ----- L2: -2.8 ----- L3: -1.8 ----- L4: -2.2 ----- L1-L4: -2.1 Z Score Values are as follows: ----- L1: -1.2 ----- L2: -2.2 ----- L3: -1.2 ----- L4: -1.6 ----- L1-L4: -1.5 Bone mineral density : baseline Bone mineral density about the R hip (g/cm2): 0.971 Bone mineral density about the L hip (g/cm2): 0.929 T Score values are as follows: -----R Neck: -1.4 -----L Neck: -0.6 -----R Total: -0.3 -----L Total: -0.6 Z Score values are as follows: -----R Neck: -0.5 -----L Neck: -0.7 -----R Total: 0.2 -----L Total: -0.1 Bone mineral density : baseline FRAX%s: The graph provided illustrates a 13.3% chance for a major osteoporotic fx and a 1.2% chance f or the hips probability for fx in 10 years time. IMPRESSION: Osteopenia (T Score between -2.5 and -1). There is slightly increased risk of fracture and the patient may be considered for treatment. Re-Screen 2-5 years. NOTE: T-SCORE=SD OF THE YOUNG ADULT MEAN.
--- NOTE | 2023-02-10 10:45 | MM ---
Reason for Exam: Screening (asymptomatic). Last mammogram was performed 2 year(s) and 2 month(s) ago. Patient History: Menarche at age 11. First Full-Term at age 16. Postmenopausal. Hormonal Contraceptives, starting at age 16 for 26 years. 12/2017, Benign Excisional Biopsy on the left side. Risk Values: Mikayla 5 year model risk: 1.2%. NCI Lifetime model risk: 6.4%. Prior Study Comparison: 08/20/2017 Bilateral Screening Mammogram, [facility]. 08/23/2018 Bilateral Diagnostic Mammogram, [facility]. 11/23/2020 Bilateral Screening Mammogram, [facility]. Tissue Density: The breast tissue is heterogeneously dense. This may lower the sensitivity of mammography. Findings: Analyzed By CAD. There is no suspicious group of microcalcifications or new suspicious mass in either breast. Overall Assessment: Negative, BI-RAD 1 Management: Screening Mammogram of both breasts in [address] [facility] will attempt to contact patient to return for supplemental views and ultrasound if indicated. Patient should continue monthly self-breast exams. A clinical breast exam by your physician is recommended on an annual basis. This exam should not preclude additional follow-up of suspicious palpable abnormalities. Note on Mikayla scores and lifetime risk: 1. A Mikayla score greater than 3% is considered moderate risk. If this is the case, consider specialist referral to assess eligibility for a risk reducing agent. 2. If overall lifetime risk for the development of breast cancer is 20% or higher, the patient may qualify for future screening with alternating mammogram and breast MRI. Electronically signed and approved by: uRsty Keys DO
== END | disposition home or self-care (01) ==
LOC: RADMAMWWP 08:21
PROVIDERS: ATTEND Family Medicine
DX: Z12.31 Encounter for screening mammogram for malignant neoplasm of breast (principal); M81.0 Age-related osteoporosis without current pathological fracture; M85.89 Other specified disorders of bone density and structure, multiple sites; Z78.0 Asymptomatic menopausal state
CPT/HCPCS: 77063; 77067; 77080

== ENCOUNTER → 2023-04-07 | Outpatient (CLI) | payer OTHER ==
--- NOTE | 2023-04-07 11:16 | XR ---
EXAMINATION TYPE: XR finger RT DATE OF EXAM: 04/07/2023 10:58 AM CLINICAL INDICATION:Female, 57 years old with history of M79.644; [facility] COMPARISON: None TECHNIQUE: XR finger RT Frontal, lateral and oblique views were obtained. FINDINGS: Normal alignment of the visualized joints. No acute osseous pathology is identified. No e vidence of soft tissue swelling. No radiopaque foreign body. IMPRESSION: No acute osseous pathology.
== END | disposition home or self-care (01) ==
LOC: RADXRMAIN 10:40
PROVIDERS: ATTEND Internal Medicine
DX: M79.644 Pain in right finger(s) (principal)

== ENCOUNTER → 2023-12-08 | Outpatient (CLI) | payer OTHER ==
[2023-12-08 10:30] LABS: Basophils # (A) 0.05 X 10*3/uL (0.00-0.10); Basophils % (A) 0.9 %; Eosinophils # (A) 0.13 X 10*3/uL (0.04-0.35); Eosinophils % (A) 2.4 %; HCT 36.1 % (37.2-46.3); HGB 12.1 g/dL (12.0-15.0); Lymphocytes # (A) 2.64 X 10*3/uL (0.90-5.00); Lymphocytes % (A) 48.1 %; MCH 30.3 pg (27.0-32.0); MCHC 33.5 g/dL (32.0-37.0); MCV 90.3 FL (80.0-97.0); Mean Platelet Volume 9.5 FL (9.5-12.2); Monocytes # (A) 0.31 X 10*3/uL (0.20-1.00); Monocytes % (A) 5.6 %; NRBC Per 100 WBC 0 X 10*3/uL (0.00-0.01); Neutrophils # (A) 2.35 X 10*3/uL (1.80-7.70); Neutrophils % (A) 42.8 %; Platelet Count 224 X 10*3/uL (140-440); RDW 12.9 % (11.5-14.5); WBC 5.49 X 10*3/uL (4.50-10.00)
[2023-12-08 11:08] LABS: ALT 25 U/L (8-44); AST 22 U/L (13-35); Albumin 4.6 g/dL (3.8-4.9); Alkaline Phosphatase 77 U/L (41-126); BUN/Creat Ratio 20.86 Ratio (12.00-20.00); Blood Urea Nitrogen 14.6 mg/dL (9.0-27.0); Calcium 9.3 mg/dL (8.7-10.3); Carbon Dioxide 26.2 mmol/L (21.6-31.8); Chloride 104 mmol/L (96-109); Chol/HDL Ratio 3.37 Ratio; Globulin 2.3 g/dL (1.6-3.3); Glucose 95 mg/dL (70-110); LDL Cholesterol,Calculated 96.1 mg/dL (0.0-131.0); Potassium 4.1 mmol/L (3.5-5.5); Sodium 142 mmol/L (135-145); T4, Free (Free Thyroxine) 0.96 ng/dL (0.80-1.80); Total Bilirubin 0.4 mg/dL (0.3-1.2); Total Protein 6.9 g/dL (6.2-8.2)
== END | disposition home or self-care (01) ==
LOC: LABWHC1 07:04
PROVIDERS: ATTEND Family Medicine
DX: Z00.00 Encounter for general adult medical examination without abnormal findings (principal); I10 Essential (primary) hypertension; E78.00 Pure hypercholesterolemia, unspecified; E55.9 Vitamin D deficiency, unspecified; R94.6 Abnormal results of thyroid function studies
CPT/HCPCS: 36415; 80053; 80061; 82306; 84439; 84443; 85025

== ENCOUNTER → 2024-02-11 | Outpatient (CLI) | payer OTHER ==
--- NOTE | 2024-02-16 14:23 | MM ---
Reason for Exam: Screening (asymptomatic). Last screening mammogram was performed 12 month(s) ago. Patient History: Menarche at age 11. First Full-Term at age 16. Postmenopausal. Hormonal Contraceptives, starting at age 16 for 26 years. 12/2017, Benign Excisional Biopsy on the left side. Risk Values: Mikayla 5 year model risk: 1.2%. NCI Lifetime model risk: 6.3%. Prior Study Comparison: 08/23/2018 Bilateral Diagnostic Mammogram, [facility]. 11/23/2020 Bilateral Screening Mammogram, [facility]. 02/09/2023 Bilateral MG 3D screening mammo w/cad, [facility]. Tissue Density: The breasts are heterogeneously dense, which may obscure small masses. Findings: Analyzed By CAD. Right breast: There is no suspicious group of microcalcifications or new suspicious mass. Left breast: There is no suspicious group of microcalcifications or new suspicious mass. Overall Assessment: Negative, BI-RAD 1 Management: Screening Mammogram of both breasts in [address] [facility] will attempt to contact patient to return for supplemental views and ultrasound if indicated. Patient should continue monthly self-breast exams. A clinical breast exam by your physician is recommended on an annual basis. This exam should not preclude additional follow-up of suspicious palpable abnormalities. Note on Mikayla scores and lifetime risk: 1. A Mikayla score greater than 3% is considered moderate risk. If this is the case, consider specialist referral to assess eligibility for a risk reducing agent. 2. If overall lifetime risk for the development of breast cancer is 20% or higher, the patient may qualify for future screening with alternating mammogram and breast MRI. Electronically signed and approved by: Rusty Keys DO
== END | disposition home or self-care (01) ==
LOC: RADMAMWWP 06:59
PROVIDERS: ATTEND Family Medicine
DX: Z12.31 Encounter for screening mammogram for malignant neoplasm of breast
CPT/HCPCS: 77063; 77067

== ENCOUNTER → 2024-12-01 | Outpatient (CLI) | payer OTHER ==
[2024-12-01 10:18] LABS: Basophils # (A) 0.06 X 10*3/uL (0.00-0.10); Basophils % (A) 0.8 %; Eosinophils # (A) 0.11 X 10*3/uL (0.04-0.35); Eosinophils % (A) 1.4 %; HCT 37.4 % (37.2-46.3); HGB 12.6 g/dL (12.0-15.0); Lymphocytes # (A) 3.12 X 10*3/uL (0.90-5.00); Lymphocytes % (A) 39.9 %; MCH 30.4 pg (27.0-32.0); MCHC 33.7 g/dL (32.0-37.0); MCV 90.1 FL (80.0-97.0); Mean Platelet Volume 9.4 FL (9.5-12.2); Monocytes % (A) 5.1 %; NRBC Per 100 WBC 0 X 10*3/uL (0.00-0.01); Neutrophils # (A) 4.11 X 10*3/uL (1.80-7.70); Neutrophils % (A) 52.7 %; Platelet Count 256 X 10*3/uL (140-440); RBC 4.15 X 10*6/uL (4.10-5.20); RDW 13.1 % (11.5-14.5); WBC 7.81 X 10*3/uL (4.50-10.00)
[2024-12-01 10:50] LABS: % Iron Saturation 14.16 (12.00-45.00); ALT 29 U/L (8-44); AST 29 U/L (13-35); Albumin 4.5 g/dL (3.8-4.9); Albumin/Globulin Ratio 1.88 Ratio (1.60-3.17); Alkaline Phosphatase 75 U/L (41-126); BUN/Creat Ratio 19.25 Ratio (12.00-20.00); Blood Urea Nitrogen 15.4 mg/dL (9.0-27.0); Calcium 9.4 mg/dL (8.7-10.3); Carbon Dioxide 25.4 mmol/L (21.6-31.8); Chloride 104 mmol/L (96-109); Chol/HDL Ratio 3.49 Ratio; Ferritin 72.1 ng/mL (10.0-291.0); Globulin 2.4 g/dL (1.6-3.3); Glucose 102 mg/dL (70-110); Iron 62 UG/DL (50-170); Potassium 4.1 mmol/L (3.5-5.5); Sodium 142 mmol/L (135-145); Total Bilirubin 0.3 mg/dL (0.3-1.2); Total Iron Binding Capacity 438 UG/DL (228-460); Total Protein 6.9 g/dL (6.2-8.2)
== END | disposition home or self-care (01) ==
LOC: LABWHC1 07:10
DX: Z00.00 Encounter for general adult medical examination without abnormal findings (principal); I10 Essential (primary) hypertension; E55.9 Vitamin D deficiency, unspecified; R53.82 Chronic fatigue, unspecified; R94.6 Abnormal results of thyroid function studies; Z79.899 Other long term (current) drug therapy
CPT/HCPCS: 36415; 80053; 80061; 82306; 82607; 82728; 82746; 83036; 83540; 83550; 84439; 84443; 85025